=== PATIENT | male | born 1990 | race Caucasian/White ===

== ENCOUNTER 2021-12-08 13:17 | Emergency (ER) | payer BC ==
[2021-12-08] MEDS ORDERED: Ketorolac 60 MG/2 ML SDV IM ONE (15:22)
== END 2021-12-08 16:37 | disposition home or self-care (01) ==
LOC: MW.ED 13:17
DX: S93.402A Sprain of unspecified ligament of left ankle, initial encounter (principal); X50.1XXA Overexertion from prolonged static or awkward postures, initial encounter
CPT/HCPCS: 73610; 96372; 99283; J1885